=== PATIENT | female | born 1950 ===

== ENCOUNTER 2022-02-26 07:15 | Inpatient (IN) | payer OTHER ==
[~2022-02-26] VITALS: Ht 172.7 cm; Wt 108.9 kg
[2022-02-26] MEDS ORDERED: ENALAPRIL MALEAT5 MG PO (08:52)
[2022-02-26] MEDS ORDERED: DILANTIN100 MG PO (08:52)
[2022-02-26] MEDS ORDERED: LASIX20 MG PO (08:52)
[2022-02-26] MEDS ORDERED: XARELTO20 MG PO (08:53)
[2022-02-26] MEDS ORDERED: PROTONIX40 MG PO (08:54)
[2022-02-26] MEDS ORDERED: NEURIN (08:54)
[2022-02-26] MEDS ORDERED: PANADOL EXTRA500 MG PO (08:55)
[2022-02-26] MEDS ORDERED: TYLENOL ARTHRI650 MG PO (08:56)
[2022-03-10] MEDS ORDERED: VITAMIN B-12250 MCG (09:45)
[2022-03-10] MEDS ORDERED: PROAIR HFA8.5 GM (09:45)
[2022-03-10] MEDS ORDERED: MONTELUKAST SOD10 MG (09:45)
[2022-03-10] MEDS ORDERED: CEROVITE SENIO1 EACH (09:46)
[2022-03-10] MEDS ORDERED: VITAMIN D3125 MC1 (09:46)
[2022-03-10] MEDS ORDERED: GABAPENTIN100 M2 PO (09:47)
[2022-03-12] MEDS ORDERED: OXYC1TAB9 PO (06:29)
[2022-03-12] MEDS ORDERED: XARELTO10 MG PO (06:29)
[2022-03-12] MEDS ORDERED: BACTRIM DS TAB1 EACH PO (06:29)
[2022-03-12] MEDS ORDERED: INTEGRA PLUS C1 EACH PO (06:29)
== END 2022-03-12 13:45 | DRG 470 ==
LOC: SURG 03-03 07:00 → O/R 03-10 05:50 → SURG 03-10 07:15
PROVIDERS: ADMIT Orthopaedic Surgery Sports Medicine; ATTEND Orthopaedic Surgery Sports Medicine
PROC: 0SRD0J9 Replacement of Left Knee Joint with Synthetic Substitute, Cemented, Open Approach (ICD-10-PCS; principal; 2022-03-10 09:00)
DX: M17.12 Unilateral primary osteoarthritis, left knee (principal); G40.89 Other seizures; I10 Essential (primary) hypertension; Z96.652 Presence of left artificial knee joint; Z20.822 Contact with and (suspected) exposure to COVID-19; I73.9 Peripheral vascular disease, unspecified